=== PATIENT | male | born 1995 | race African-American/Black ===

== ENCOUNTER 2019-04-02 05:49 | Emergency (ER) | payer OTHER ==
[~2019-04-02] VITALS: Ht 172.7 cm; Wt 86.4 kg
[2019-04-02 05:49] VITALS: BP 139/83
[2019-04-02] MEDS ORDERED: IBUPROFEN 800 MG TAB PO ONE (06:30)
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
== END 2019-04-02 07:39 | disposition home or self-care (01) ==
LOC: M ED 05:49
DX: S01.311A Laceration without foreign body of right ear, initial encounter (principal); M79.9 Soft tissue disorder, unspecified; R68.84 Jaw pain; Y04.8XXA Assault by other bodily force, initial encounter; Y92.511 Restaurant or cafe as the place of occurrence of the external cause

== ENCOUNTER 2019-08-06 22:23 | Emergency (ER) | payer OTHER ==
[~2019-08-06] VITALS: Ht 172.7 cm; Wt 86.4 kg
[2019-08-06] MEDS ORDERED: cefTRIAXone SOD 250 MG VIAL (J0696) IM ONE (23:30)
[2019-08-06] MEDS ORDERED: AZITHROMYCIN 250 MG TAB PO ONE (23:30)
[2019-08-06] MEDS ORDERED: LIDOCAINE 1% SDV 5 ML VIAL DILUENT ONE (23:30)
[2019-08-06 23:39] VITALS: BP 154/74
[2019-08-07 00:32] LABS: CHLAMYDIA DNA AMPLIFICATION NEGATIVE (NEGATIVE); GC DNA AMPLIFICATION NEGATIVE (NEGATIVE)
== END 2019-08-07 00:15 | disposition home or self-care (01) ==
LOC: M ED 22:23
DX: Z20.2 Contact with and (suspected) exposure to infections with a predominantly sexual mode of transmission (principal)
CPT/HCPCS: 87661; 96372; 99283; J0696